=== PATIENT | female | born 1975 | race American Indian/Alaskan Native ===

== ENCOUNTER 2019-11-27 21:06 | Emergency (ER) | payer OTHER ==
--- NOTE | 2019-11-27 22:01 | Event Note ---
ED Screening Note Date of service: 11/27/19 Time: 21:59 ED Screening Note: 44 y o f presents with vomitting/ diarhrea and nose bleed PMH: recent dx of HTN at ER, no follow up , non compliance This initial assessment/diagnostic orders/clinical plan/treatment(s) is/are subject to change based on patients health status, clinical progression and re- assessment by fellow clinical providers in the ED. Further treatment and workup at subsequent clinical providers discretion. Patient/guardian urged not to elope from the ED as their condition may be serious if not clinically assessed and managed. Initial orders include: labs, ua,upt pain control clonidine 0.2 in traige acc eval
[2019-11-27] MEDS ORDERED: cloNIDine 0.2 MG TAB PO ONE (22:04)
[2019-11-27] MEDS ORDERED: cloNIDine 0.2 MG TAB ONE (22:07)
[2019-11-27 23:31] LABS: Basophils % (Auto) 0.9 % (0.0-1.8); Eosinophils # (Auto) 0.1 K/mm3 (0.0-0.4); Eosinophils % (Auto) 1.3 % (0.0-4.3); Hematocrit 39.2 % (30.3-42.9); Hemoglobin 13.2 gm/dl (10.1-14.3); Lymphocytes # (Auto) 2.2 K/mm3 (1.2-5.4); Mean Corpuscular HGB Conc 34 % (30-34); Mean Corpuscular Volume 101 fl (79-97); Monocytes # (Auto) 0.4 K/mm3 (0.0-0.8); Monocytes % (Auto) 6.7 % (0.0-7.3); Platelet Count 247 K/mm3 (140-440); Red Blood Count 3.89 M/mm3 (3.65-5.03); Red Cell Distribution Width 17.2 % (13.2-15.2)
[2019-11-27 23:49] LABS: Alanine Aminotransferase 29 units/L (7-56); Albumin 4.4 g/dL (3.9-5); BUN/Creatinine Ratio 7; Blood Urea Nitrogen 5 mg/dL (7-17); Calcium 9.1 mg/dL (8.4-10.2); Hemolysis Index 5
[2019-11-28] MEDS ORDERED: HYDROcodone/ACETAMINOPHEN 5-325 MG TAB PO ONE (00:47)
[2019-11-28] MEDS ORDERED: PROMETHAZINE 25 MG TAB PO ONE (00:47)
--- NOTE | 2019-11-28 00:54 | Emergency Department Report ---
HPI - General Chief Complaint: Abdominal Pain Time Seen by Provider: 11/28/19 00:38 - HPI HPI: Room 41 The patient is a 44-year-old female presenting with a chief complaint of headache nausea vomiting. Patient states her symptoms began when she awakened 11/25/2019 with nausea and vomiting, epistaxis and a headache. Patient states she had the same symptoms in August and it was attributed to her hypertension. Patient states she never followed up with her primary physician regarding her hypertension she could not get the time away from work. Patient states she is now able to follow up with her primary doctor. The patient gives her headache is 6/10. Patient admits to nausea. Location: [See above] Duration: [See above] Quality: [See above] Severity: [See above] Timing: [See above] Context: [See above] Modifying factors: [See above] Associated signs and symptoms: [see above] ED Past Medical Hx - Past Medical History Previous Medical History?: Yes Hx Hypertension: Yes - Surgical History Past Surgical History?: Yes Additional Surgical History: Right ankle - Family History Family history: no significant - Social History Smoking Status: Current Every Day Smoker (1/2 pack per day) Substance Use Type: None (denies illicit drug use), Alcohol (nightly) - Medications Home Medications: Home Medications Medication Instructions Recorded Confirmed Last Taken Type Butalb/Acetamin/Caff 50-325-40 1 tab PO Q8HR PRN #10 tablet 11/28/19 Unknown Rx [Fioricet 50-325-40] Promethazine [Phenergan] 25 mg PO Q6HR PRN #20 tab 11/28/19 Unknown Rx Promethazine [Phenergan] 25 mg [place] Q6HR PRN #5 supp.rect 11/28/19 Unknown Rx amLODIPine 5 mg PO DAILY #90 tab 11/28/19 Unknown Rx levoFLOXacin [Levaquin TAB] 500 mg PO QDAY #3 tablet 11/28/19 Unknown Rx ED Review of Systems ROS: Stated complaint: VOMITTING FOR 2 DAYS Other details as noted in HPI Constitutional: no symptoms reported Eyes: denies: eye pain ENT: denies: throat pain Respiratory: no symptoms reported Cardiovascular: denies: chest pain Endocrine: no symptoms reported Gastrointestinal: nausea, vomiting Neurological: headache Physical Exam - Physical Exam Vital Signs: Vital Signs 11/27/19 22:08 Pulse Rate 94 H Blood Pressure 193/126 Vital Signs 11/27/19 11/28/19 11/28/19 22:08 00:59 01:13 Temperature 98.6 F Pulse Rate 94 H 68 Respiratory 20 20 Rate Blood Pressure 193/126 Blood Pressure 138/92 [Left] O2 Sat by Pulse 99 Oximetry Physical Exam: GENERAL: The patient is well-developed well-nourished female lying on stretcher not appearing to be in acute distress. [] HEENT: Normocephalic. Atraumatic. Extraocular motions are intact. Patient has moist mucous membranes. NECK: Supple. No meningitic signs are noted. Trachea midline CHEST/LUNGS: Clear to auscultation. There is no respiratory distress noted. HEART/CARDIOVASCULAR: Regular. There is no tachycardia. There is no gallop rub or murmur. ABDOMEN: Abdomen is soft, nontender. Patient has normal bowel sounds. There is no abdominal distention. SKIN: There is no rash. There is no edema. There is no diaphoresis. NEURO: The patient is awake, alert, and oriented. The patient is cooperative. The patient has no focal neurologic deficits. The patient has normal speech. Cranial nerves II through XII grossly intact, no drift MUSCULOSKELETAL: There is no evidence of acute injury. ED Course Vital Signs 11/27/19 22:08 Pulse Rate 94 H Blood Pressure 193/126 ED Medical Decision Making - Lab Data Result diagrams: 11/27/19 22:48 11/27/19 22:48 Laboratory Tests 11/27/19 11/27/19 11/28/19 22:48 22:48 01:00 WBC 5.2 RBC 3.89 Hgb 13.2 Hct 39.2 MCV 101 H MCH 34 H MCHC 34 RDW 17.2 H Plt Count 247 Lymph % (Auto) 41.0 H Rhea % (Auto) 6.7 Eos % (Auto) 1.3 Baso % (Auto) 0.9 Lymph # 2.2 Rhea # 0.4 Eos # 0.1 Baso # 0.0 Seg Neutrophils % 50.1 Seg Neutrophils # 2.6 Sodium 134 L Potassium 4.2 Chloride 97.3 L Carbon Dioxide 22 Anion Gap 19 BUN 5 L Creatinine 0.7 Estimated GFR > 60 BUN/Creatinine Ratio 7 Glucose 103 H Calcium 9.1 Total Bilirubin 0.40 AST 51 H ALT 29 Alkaline Phosphatase 78 Total Protein 7.7 Albumin 4.4 Albumin/Globulin Ratio 1.3 Urine Color Yellow Urine Turbidity Slightly-cloudy Urine pH 6.0 Ur Specific [place] 1.003 Urine Protein <15 mg/dl Urine Glucose (UA) Neg Urine Ketones Neg Urine Blood Lg Urine Nitrite Pos Urine Bilirubin Neg Urine Urobilinogen < 2.0 Ur Leukocyte Esterase Lg Urine WBC (Auto) 33.0 H Urine RBC (Auto) 24.0 U Epithel Cells (Auto) 1.0 Urine Bacteria (Auto) 3+ Urine HCG, Qual Negative - Radiology Data Radiology results: report reviewed (CT head), image reviewed (CT head) [facility] [address] [place] [address] Cat Scan Report Signed Patient: ARNOLDO CHAIDEZ MR#: [id number] : 1975 Acct:[id number] Age/Sex: 44 / F ADM Date: 11/27/19 Loc: ED Attending Dr: Ordering Physician: CONRAD HERNANDES MD Date of Service: 11/28/19 Procedure(s): CT head/brain wo con Accession Number(s): [id number] cc: CONRAD HERNANDES MD CT head/brain wo con INDICATION: hypertension, headache. TECHNIQUE: All CT scans at this location are performed using CT dose reduction for ALARA by means of automated exposure control. COMPARISON: None available. FINDINGS: Visualized paranasal and mastoid sinuses are clear. Ventricles are symmetrical and normal in size. No mass, hemorrhage or other significant abnormality. IMPRESSION: 1. No acute abnormality. Signer Name: Aj Aparicio MD Signed: 11/28/2019 1:34 AM Workstation Name: [id number] Transcribed By: TM Dictated By: Aj Aparicio MD Electronically Authenticated By: Aj Aparicio MD Signed Date/Time: 11/28/19133 DD/ 2 TD/TT: - Differential Diagnosis hypertensive urgency, intracranial mass Critical care attestation.: If time is entered above; I have spent that time in minutes in the direct care of this critically ill patient, excluding procedure time. ED Disposition Clinical Impression: Hypertensive urgency, Headache, UTI (urinary tract infection) Disposition: DC- TO HOME OR SELFCARE Is pt being admited?: No Does the pt Need Aspirin: No Condition: Stable Instructions: Abdominal Pain (ED) Prescriptions: amLODIPine 5 mg PO DAILY #90 tab Butalb/Acetamin/Caff 50-325-40 [Fioricet 50-325-40] 1 tab PO Q8HR PRN #10 tablet PRN Reason: Headache levoFLOXacin [Levaquin TAB] 500 mg PO QDAY #3 tablet Promethazine [Phenergan] 25 mg PO Q6HR PRN #20 tab PRN Reason: Nausea Promethazine [Phenergan] 25 mg [place] Q6HR PRN #5 supp.rect PRN Reason: Vomiting Referrals: PRIMARY CARE, [Primary Care Provider] - 3-5 Days Time of Disposition: 01:42
[2019-11-28 01:12] LABS: Bacteria,Urine 3+ /HPF (Negative); Bilirubin,Urine NEG (Negative); Blood,Urine LG (Negative); Color,Urine Yellow (Yellow); Protein,Urine <15 mg/dL mg/dL (Negative); Urobilinogen,Urine < 2.0 mg/dL (<2.0)
[2019-11-28 01:14] VITALS: BP 138/92
[2019-11-28 01:15] LABS: HCG Qualitative,Urine Negative (Negative)
--- NOTE | 2019-11-28 01:38 | Cat Scan Report ---
CT head/brain wo con INDICATION: hypertension, headache. TECHNIQUE: All CT scans at this location are performed using CT dose reduction for ALARA by means of automated e xposure control. COMPARISON: None available. FINDINGS: Visualized paranasal and mastoid sinuses are clear. Ventricles are symmetrical and normal in size. No mass, hemorrhage or other significant abnormality. IMPRESSION: 1. No acute abnormality. Signer Name: Aj Aparicio MD Signed: 11/28/2019 1:34 AM Workstation Name: [id number]
== END 2019-11-28 02:00 | disposition home or self-care (01) ==
LOC: ED 21:06
DX: N39.0 Urinary tract infection, site not specified (principal); R51 Headache; I16.0 Hypertensive urgency; I10 Essential (primary) hypertension; F17.200 Nicotine dependence, unspecified, uncomplicated; Z79.899 Other long term (current) drug therapy
CPT/HCPCS: 36415; 70450; 80053; 81001; 81025; 85025; 87076; 87086; 87186; 99284; Q0169

== ENCOUNTER 2020-12-16 16:59 | Emergency (ER) | payer OTHER | END 2020-12-16 17:20 | disposition left against medical advice (07) | LOC: ED 16:59 | DX: M54.9 Dorsalgia, unspecified (principal); Z53.21 Procedure and treatment not carried out due to patient leaving prior to being seen by health care provider ==

== ENCOUNTER 2020-12-21 01:09 | Emergency (ER) | payer OTHER ==
--- NOTE | 2020-12-21 02:11 | Emergency Department Report ---
ED Extremity Problem HPI - General Chief complaint: Abdominal Pain Stated complaint: EMESIS/DIARRHEA/WEIGHT LOSS/NUMBNESS Time Seen by Provider: 12/21/20 01:52 Source: patient Mode of arrival: Ambulatory Limitations: No Limitations - History of Present Illness Initial comments: 45-year-old female, history of hypertension, noncompliant with BP meds (chooses to treat her hypertension with natural remedies), presents to ED with multiple complaints. First, patient reports she has had numbness only to the front/anterior aspect of her lower legs and thighs for the last 3 weeks. Secondly, patient reports she has had bilateral knee pain for 1 week, right worse than left. States this pain radiates up into her thighs. Patient denies any trauma. States she has never had this pain before. She denies any pain to the lower legs. Patient states she is unable to tell if she has any swelling to her knees. Patient reports she has been taken [id number] medications for this. Third, patient reports she is having nausea, vomiting, diarrhea and as sociated abdominal pain x4 days. Patient states the pain is located in the lower abdomen and radiates around to her lower back. Patient reports she has been experiencing the same abdominal and back pain for 1 year, off and on. Patient states "I have stomach issues." However, patient states she has not seen a client care representative because she is afraid of doctors. Patient denies any fever, cough, shortness of breath, loss of smell or taste, known exposure to anyone who has tested positive for COVID-19. MD Complaint: extremity pain -: week(s) (1) Location: bilateral lower extremity History of Same: No -: Yes arthralgia, No fever, No associated dyspnea, No associated chest pain Quality: aching Consistency: constant Improves with: nothing Worsens with: nothing Associated Symptoms: denies: chest pain, shortness of breath, fever - Related Data Previous Rx's Medication Instructions Recorded Last Taken Type Butalb/Acetamin/Caff 50-325-40 1 tab PO Q8HR PRN #10 tablet 11/28/19 Unknown Rx [Fioricet 50-325-40] Promethazine [Phenergan] 25 mg PO Q6HR PRN #20 tab 11/28/19 Unknown Rx Promethazine [Phenergan] 25 mg [place] Q6HR PRN #5 supp.rect 11/28/19 Unknown Rx levoFLOXacin [Levaquin TAB] 500 mg PO QDAY #3 tablet 11/28/19 Unknown Rx Acetaminophen/Codeine [Tylenol 1 tab PO Q6H PRN #14 tab 08/03/20 Unknown Rx /Codeine # 3 tab] Naproxen [Naprosyn] 500 mg PO BID #20 tablet 12/21/20 Unknown Rx Ondansetron [Zofran Odt] 4 mg PO Q8HR PRN #20 tab.rapdis 12/21/20 Unknown Rx Sulfamethoxazole/Trimethoprim 1 each PO BID #6 tablet 12/21/20 Unknown Rx [Bactrim DS TAB] amLODIPine 5 mg PO DAILY #30 tab 12/21/20 Unknown Rx traMADoL [Ultram] 50 mg PO Q6HR PRN #7 tablet 12/21/20 Unknown Rx Allergies Allergy/AdvReac Type Severity Reaction Status Date / Time No Known Allergies Allergy Unverified 11/27/19 22:07 ED Review of Systems ROS: Stated complaint: EMESIS/DIARRHEA/WEIGHT LOSS/NUMBNESS Other details as noted in HPI Comment: All other systems reviewed and negative Constitutional: denies: fever Respiratory: denies: cough, shortness of breath Cardiovascular: denies: chest pain Gastrointestinal: abdominal pain, nausea, vomiting, diarrhea Musculoskeletal: as per HPI Neurological: numbness, paresthesias ED Past Medical Hx - Past Medical History Previous Medical History?: Yes Hx Hypertension: Yes Additional medical history: anemia - Surgical History Past Surgical History?: Yes Additional Surgical History: Right ankle - Social History Smoking Status: Current Every Day Smoker Substance Use Type: Alcohol - Medications Home Medications: Home Medications Medication Instructions Recorded Confirmed Last Taken Type Butalb/Acetamin/Caff 50-325-40 1 tab PO Q8HR PRN #10 tablet 11/28/19 Unknown Rx [Fioricet 50-325-40] Promethazine [Phenergan] 25 mg PO Q6HR PRN #20 tab 11/28/19 Unknown Rx Promethazine [Phenergan] 25 mg [place] Q6HR PRN #5 supp.rect 11/28/19 Unknown Rx levoFLOXacin [Levaquin TAB] 500 mg PO QDAY #3 tablet 11/28/19 Unknown Rx Acetaminophen/Codeine [Tylenol 1 tab PO Q6H PRN #14 tab 08/03/20 Unknown Rx /Codeine # 3 tab] Naproxen [Naprosyn] 500 mg PO BID #20 tablet 12/21/20 Unknown Rx Ondansetron [Zofran Odt] 4 mg PO Q8HR PRN #20 tab.rapdis 12/21/20 Unknown Rx Sulfamethoxazole/Trimethoprim 1 each PO BID #6 tablet 12/21/20 Unknown Rx [Bactrim DS TAB] amLODIPine 5 mg PO DAILY #30 tab 12/21/20 Unknown Rx traMADoL [Ultram] 50 mg PO Q6HR PRN #7 tablet 12/21/20 Unknown Rx ED Physical Exam - General Limitations: No Limitations General appearance: alert, in no apparent distress - Head Head exam: Present: atraumatic, normocephalic - Eye Eye exam: Present: normal appearance - ENT ENT exam: Present: mucous membranes moist - Neck Neck exam: Present: normal inspection - Respiratory Respiratory exam: Present: normal lung sounds bilaterally. Absent: respiratory distress - Cardiovascular Cardiovascular Exam: Present: normal rhythm, tachycardia - GI/Abdominal GI/Abdominal exam: Present: soft, tenderness (Mild suprapubic). Absent: distended - Extremities Exam Extremities exam: Present: normal inspection, full ROM, tenderness (Bilateral knees), other (pt ambulates without difficulty). Absent: joint swelling, calf tenderness - Neurological Exam Neurological exam: Present: alert, oriented X3. Absent: motor sensory deficit (Sensation intact in lower extremities, able to feel light touch, equal bilaterally; strength is intact in bilateral legs) - Psychiatric Psychiatric exam: Present: normal affect, normal mood - Skin Skin exam: Present: warm, dry, intact, normal color ED Course Vital Signs 12/21/20 12/21/20 01:20 04:47 Temperature 98.0 F 98 F Pulse Rate 111 H 94 H Respiratory 16 16 Rate Blood Pressure 170/112 Blood Pressure 149/106 [Left] O2 Sat by Pulse 96 100 Oximetry ED Medical Decision Making - Lab Data Result diagrams: 12/21/20 01:28 12/21/20 01:28 - Radiology Data Radiology results: report reviewed, image reviewed - Medical Decision Making Patient presents to ED with multiple complaints. Her main complaint is report of bilateral knee pain. X-rays are unremarkable. Exam shows no. Range of motion is intact. Patient is ambulatory. Strength and sensation are also intact, despite her reporting anterior numbness to bilateral legs. Labs show hypokalemia with potassium of 3.1. This has been replaced. Patient is hypertensive, however she reports noncompliance with her BP meds. Will still discharged with prescription for antihypertensive. Will also give prescription for antibiotics as patient has some bacteriuria. Patient advised to seek outpatient follow-up. Return precautions given. Will discharge at this time. Critical care attestation.: If time is entered above; I have spent that time in minutes in the direct care of this critically ill patient, excluding procedure time. ED Disposition Clinical Impression: Uncontrolled hypertension, Arthralgia of both knees, Chronic abdominal pain, UTI (urinary tract infection), Hypokalemia Disposition: TO HOME OR SELFCARE Is pt being admited?: No Condition: Stable Instructions: Acute Knee Pain, Adult, Potassium Content of Foods, Hypertension, Adult, Abdominal Pain (ED), Hypertension (ED) Prescriptions: amLODIPine 5 mg PO DAILY #30 tab Sulfamethoxazole/Trimethoprim [Bactrim DS TAB] 1 each PO BID #6 tablet Naproxen [Naprosyn] 500 mg PO BID #20 tablet traMADoL [Ultram] 50 mg PO Q6HR PRN #7 tablet PRN Reason: Pain Ondansetron [Zofran Odt] 4 mg PO Q8HR PRN #20 tab.rapdis PRN Reason: Vomiting Referrals: RUPAL RODRIGUEZCLIFTON MD CARIN [Primary Care Provider] - 3-5 Days HANNAH STEELE MD [Staff Physician] - 3-5 Days MIAN PLATA MD [Staff Physician] - 3-5 Days Forms: Work/School Release Form(ED) Time of Disposition: 04:27
[2020-12-21 02:33] LABS: Alanine Aminotransferase 38 units/L (7-56); Albumin 3.8 g/dL (3.9-5); Basophils # (Auto) 0.1 K/mm3 (0.0-0.1); Basophils % (Auto) 0.9 % (0.0-1.8); Blood Urea Nitrogen 2 mg/dL (7-17); Calcium 8.4 mg/dL (8.4-10.2); Eosinophils # (Auto) 0.1 K/mm3 (0.0-0.4); Eosinophils % (Auto) 0.9 % (0.0-4.3); Hemoglobin 11.1 gm/dl (10.1-14.3); Hemolysis Index 3; Lymphocytes # (Auto) 2.9 K/mm3 (1.2-5.4); Lymphocytes % (Auto) 40.3 % (13.4-35.0); Mean Corpuscular HGB Conc 34 % (30-34); Monocytes # (Auto) 0.6 K/mm3 (0.0-0.8); Monocytes % (Auto) 7.7 % (0.0-7.3); Platelet Count 278 K/mm3 (140-440); Red Blood Count 2.88 M/mm3 (3.65-5.03)
[2020-12-21 02:38] LABS: BUN/Creatinine Ratio 4; Mean Corpuscular Volume 114 fl (79-97); Red Cell Distribution Width 24.6 % (13.2-15.2)
[2020-12-21] MEDS ORDERED: POTASSIUM CHLORIDE ER 20 MEQ TAB PO ONE (02:46)
[2020-12-21] MEDS ORDERED: traMADol 50 MG TAB PO ONE (03:02)
[2020-12-21] MEDS ORDERED: ONDANSETRON 4 MG ODT TAB PO ONE (03:02)
--- NOTE | 2020-12-21 03:11 | XRay Report ---
Bilateral knee radiographs 3 views right, 3 views left INDICATION / CLINICAL INFORMATION: Numbness in front of legs and pain COMPARISON: None available. FINDINGS: BONES / JOINT(S): No acute fracture or subluxation. No significant arthritis. SOFT TISSUES: No significant abnormality. ADDITIONAL FINDINGS: None. Signer Name: Gómez Muir MD Signed: 12/21/2020 3:06 AM Workstation Name: [id number]
[2020-12-21 04:09] LABS: Bacteria,Urine 2+ /HPF (Negative); Bilirubin,Urine NEG (Negative); Blood,Urine NEG (Negative); Color,Urine Yellow (Yellow); Protein,Urine <15 mg/dL mg/dL (Negative); Urobilinogen,Urine < 2.0 mg/dL (<2.0)
[2020-12-21 04:48] VITALS: BP 149/106
== END 2020-12-21 05:14 | disposition home or self-care (01) ==
LOC: ED 01:09
DX: I10 Essential (primary) hypertension (principal); M25.562 Pain in left knee; M25.561 Pain in right knee; N39.0 Urinary tract infection, site not specified; E87.6 Hypokalemia; F17.200 Nicotine dependence, unspecified, uncomplicated; Z79.899 Other long term (current) drug therapy
CPT/HCPCS: 36415; 80053; 81001; 84703; 85025; Q0162

== ENCOUNTER 2020-12-31 17:35 | Emergency (ER) | payer OTHER ==
--- NOTE | 2020-12-31 18:20 | Emergency Department Report ---
Blank Doc - Documentation Documentation: 45-year-old female that presents with chest pain, shortness of breath, abdominal pain with nausea vomiting. Patient stated has a possibility of exposure with Covid. Tachycardia in triage. 1- This initial assessment/diagnostic orders/clinical plan/ treatment(s) is/are subject to change based on pt's health status, clinical progression and re- assessment by fellow clinical providers in the ED. Further treatment and workup at subsequent clinical provers discretion. Patient/guardians urged not to elope from ED as their condition may be serious if not clinically assessed and managed. 2-cardiac work-up 3-UA
[2020-12-31 18:46] LABS: Basophils % (Auto) 0.7 % (0.0-1.8); Eosinophils % (Auto) 0.7 % (0.0-4.3); Hematocrit 33.7 % (30.3-42.9); Hemoglobin 11.2 gm/dl (10.1-14.3); Lymphocytes # (Auto) 1.5 K/mm3 (1.2-5.4); Lymphocytes % (Auto) 31.2 % (13.4-35.0); Mean Corpuscular HGB Conc 33 % (30-34); Monocytes # (Auto) 0.6 K/mm3 (0.0-0.8); Monocytes % (Auto) 11.8 % (0.0-7.3); Platelet Count 259 K/mm3 (140-440); Red Blood Count 2.94 M/mm3 (3.65-5.03)
[2020-12-31 18:47] LABS: Mean Corpuscular Volume 115 fl (79-97); Red Cell Distribution Width 23.5 % (13.2-15.2)
[2020-12-31 18:56] LABS: INR 1.06 (0.87-1.13); Partial Thromboplastin Time 27.4 Sec. (24.2-36.6)
[2020-12-31 19:08] LABS: Alanine Aminotransferase 65 units/L (7-56); Albumin 3.9 g/dL (3.9-5); Blood Urea Nitrogen 4 mg/dL (7-17); Calcium 9.2 mg/dL (8.4-10.2); Hemolysis Index 13
[2020-12-31 19:10] LABS: BUN/Creatinine Ratio 8
--- NOTE | 2020-12-31 19:20 | XRay Report ---
CHEST 2 VIEWS INDICATION: Chest Pain. COMPARISON: None. FINDINGS: Support devices: None. Heart: Within normal limits. Lungs/Pleura: No acute air space or interstitial disease. No significant pleural effusion. IMPRESSION: No acute findings. Signer Name: Malik Prajapati MD Signed: 12/31/2020 7:16 PM Workstation Name: [id number]
[2021-01-01] MEDS ORDERED: dexAMETHasone 4 MG/ML VIAL IV ONE (00:15)
[2021-01-01] MEDS ORDERED: SODIUM CHLORIDE 0.9% 1000 ML 1,000 ML IV ONE (00:15)
[2021-01-01] MEDS ORDERED: hydrALAZINE 20 MG/1 ML INJ IV ONE (00:15)
[2021-01-01] MEDS ORDERED: AZITHROMYCIN/NS 500 MG/250 ML 500 MG/250 ML BAG IV ONE (00:15)
[2021-01-01] MEDS ORDERED: ONDANSETRON 4 MG/2 ML INJ IV ONE (00:15)
[2021-01-01] MEDS ORDERED: cefTRIAXone/NS 2 GM/100 ML 2 GM/100 ML BAG IV ONE (00:15)
--- NOTE | 2021-01-01 00:17 | Emergency Department Report ---
ED Chest Pain HPI - General Chief Complaint: Chest Pain Stated Complaint: CHEST PAIN;COUGH;CHILLS/V/D PUI?: Yes Time Seen by Provider: 01/01/21 00:05 Source: patient Mode of arrival: Ambulatory Limitations: No Limitations - History of Present Illness Initial Comments: Patient is a 45-year-old female who presents emergency room with complaints of chest pain, shortness of breath, chills, nausea, vomiting, diarrhea, headache, body aches, cough, decreased appetite, abdominal pain,. Patient states her symptoms started 2 days ago. Patient states that she had a COVID-19 exposure. Patient states she has not had fever. Patient states that her chest pain is better with rest and worse with movement and palpation. Patient states her shortness of breath better with rest and worse with exertion. Patient denies blood in her vomitus and blood in her diarrhea. Patient states she has not been tested for COVID-19. Patient states she was seen here 3 weeks ago for elevated blood pressure. Patient states she was given blood pressure medications. Patient states she has been compliant with his medications but has not seen her primary care since leaving the ER 3 weeks ago. Patient states she did not take her blood pressure medications and she has been vomiting.. Patient denies loss of smell. Patient denies blurry vision. Patient denies neck pain. Patient denies neck stiffness. MD Complaint: chest pain -: Sudden Onset: during rest Pain Location: substernal, left chest, right chest Pain Radiation: none Severity scale (0 -10): 7 Quality: sharp Consistency: constant Improves With: rest Worsens With: palpation, movement re: nausea, vomting, dyspnea. denies: diaphoresis, sense of impending doom Other Symptoms: cough, acid taste in mouth, palpitations, burping. denies: fever, syncope, rash, leg swelling Treatments Prior to Arrival: none Aspirin use within the Past 7 Days: (0) No - Related Data On Oral Contraceptives: No Previous Rx's Medication Instructions Recorded Last Taken Type Butalb/Acetamin/Caff 50-325-40 1 tab PO Q8HR PRN #10 tablet 11/28/19 Unknown Rx [Fioricet 50-325-40] Promethazine [Phenergan] 25 mg PO Q6HR PRN #20 tab 11/28/19 Unknown Rx Promethazine [Phenergan] 25 mg [place] Q6HR PRN #5 supp.rect 11/28/19 Unknown Rx levoFLOXacin [Levaquin TAB] 500 mg PO QDAY #3 tablet 11/28/19 Unknown Rx Acetaminophen/Codeine [Tylenol 1 tab PO Q6H PRN #14 tab 08/03/20 Unknown Rx /Codeine # 3 tab] Naproxen [Naprosyn] 500 mg PO BID #20 tablet 12/21/20 Unknown Rx Sulfamethoxazole/Trimethoprim 1 each PO BID #6 tablet 12/21/20 Unknown Rx [Bactrim DS TAB] amLODIPine 5 mg PO DAILY #30 tab 12/21/20 Unknown Rx traMADoL [Ultram] 50 mg PO Q6HR PRN #7 tablet 12/21/20 Unknown Rx Azithromycin [Zithromax] 500 mg PO DAILY 5 Days #5 tablet 01/01/21 Unknown Rx Ondansetron [Zofran ODT TAB] 4 mg PO Q6HR PRN #20 tab.rapdis 01/01/21 Unknown Rx methylPREDNISolone [Medrol 4MG 4 mg PO DAILY 6 Days #1 tab.ds.pk 01/01/21 Unknown Rx DOSEPAK (21 tabs)] Allergies Allergy/AdvReac Type Severity Reaction Status Date / Time No Known Allergies Allergy Unverified 11/27/19 22:07 Heart Score - HEART Score History: Slightly suspicious EKG: Normal Age: < 45 Risk factors: No known risk factors Troponin: < normal limit HEART Score: 0 ED Review of Systems ROS: Stated complaint: CHEST PAIN;COUGH;CHILLS/V/D Other details as noted in HPI Constitutional: chills, malaise. denies: fever Eyes: denies: eye pain, eye discharge, vision change ENT: denies: ear pain, throat pain Respiratory: cough, shortness of breath. denies: wheezing Cardiovascular: chest pain. denies: palpitations Endocrine: no symptoms reported Gastrointestinal: abdominal pain, nausea, vomiting, diarrhea. denies: constipation, hematemesis, melena, hematochezia Genitourinary: denies: urgency, dysuria, discharge Musculoskeletal: denies: back pain, joint swelling, arthralgia Skin: denies: rash, lesions Neurological: denies: headache, weakness, paresthesias Psychiatric: denies: anxiety, depression Hematological/Lymphatic: denies: easy bleeding, easy bruising ED Past Medical Hx - Past Medical History Previous Medical History?: Yes Hx Hypertension: Yes Additional medical history: anemia - Surgical History Past Surgical History?: Yes Additional Surgical History: Right ankle - Family History Family history: no significant - Social History Smoking Status: Current Every Day Smoker Substance Use Type: None - Medications Home Medications: Home Medications Medication Instructions Recorded Confirmed Last Taken Type Butalb/Acetamin/Caff 50-325-40 1 tab PO Q8HR PRN #10 tablet 11/28/19 Unknown Rx [Fioricet 50-325-40] Promethazine [Phenergan] 25 mg PO Q6HR PRN #20 tab 11/28/19 Unknown Rx Promethazine [Phenergan] 25 mg [place] Q6HR PRN #5 supp.rect 11/28/19 Unknown Rx levoFLOXacin [Levaquin TAB] 500 mg PO QDAY #3 tablet 11/28/19 Unknown Rx Acetaminophen/Codeine [Tylenol 1 tab PO Q6H PRN #14 tab 08/03/20 Unknown Rx /Codeine # 3 tab] Naproxen [Naprosyn] 500 mg PO BID #20 tablet 12/21/20 Unknown Rx Sulfamethoxazole/Trimethoprim 1 each PO BID #6 tablet 12/21/20 Unknown Rx [Bactrim DS TAB] amLODIPine 5 mg PO DAILY #30 tab 12/21/20 Unknown Rx traMADoL [Ultram] 50 mg PO Q6HR PRN #7 tablet 12/21/20 Unknown Rx Azithromycin [Zithromax] 500 mg PO DAILY 5 Days #5 tablet 01/01/21 Unknown Rx Ondansetron [Zofran ODT TAB] 4 mg PO Q6HR PRN #20 tab.rapdis 01/01/21 Unknown Rx methylPREDNISolone [Medrol 4MG 4 mg PO DAILY 6 Days #1 tab.ds.pk 01/01/21 Unknown Rx DOSEPAK (21 tabs)] ED Physical Exam - General Limitations: No Limitations General appearance: alert, in no apparent distress - Head Head exam: Present: atraumatic, normocephalic - Eye Eye exam: Present: normal appearance, PERRL Pupils: Present: normal accommodation - ENT ENT exam: Present: mucous membranes dry - Neck Neck exam: Present: normal inspection - Respiratory Respiratory exam: Present: normal lung sounds bilaterally, chest wall tenderness (Palpitation of the bilateral chest wall reproduces symptoms. Patient has tenderness to palpation of the chest wall.). Absent: respiratory distress, wheezes, rales - Cardiovascular Cardiovascular Exam: Present: regular rate, normal rhythm. Absent: systolic murmur, diastolic murmur, rubs, gallop - GI/Abdominal GI/Abdominal exam: Present: soft, normal bowel sounds. Absent: distended, tenderness, guarding - Extremities Exam Extremities exam: Present: normal inspection - Back Exam Back exam: Present: normal inspection - Neurological Exam Neurological exam: Present: alert, oriented X3 - Psychiatric Psychiatric exam: Present: normal affect, normal mood - Skin Skin exam: Present: warm, dry, intact, normal color. Absent: rash ED Course Vital Signs 12/31/20 01/01/21 01/01/21 18:09 00:04 00:15 Temperature 98.8 F 98.9 F Pulse Rate 97 H 85 Respiratory 18 16 Rate Blood Pressure 192/131 210/129 Blood Pressure 211/117 [Right] O2 Sat by Pulse 100 100 100 Oximetry 01/01/21 01/01/21 01/01/21 00:31 00:45 01:01 Temperature Pulse Rate 80 91 H 74 Respiratory 24 13 17 Rate Blood Pressure 210/129 210/129 210/129 Blood Pressure [Right] O2 Sat by Pulse 100 100 100 Oximetry 01/01/21 01/01/21 01/01/21 01:04 01:15 01:19 Temperature Pulse Rate 79 98 H Respiratory 18 18 Rate Blood Pressure 210/122 210/122 Blood Pressure [Right] O2 Sat by Pulse 100 98 Oximetry 01/01/21 01/01/21 01/01/21 01:31 01:45 02:00 Temperature Pulse Rate 103 H Respiratory 18 Rate Blood Pressure 210/122 210/122 Blood Pressure 134/79 [Right] O2 Sat by Pulse 100 100 100 Oximetry - Reevaluation(s) Reevaluation #1: Patient's blood pressure significantly elevated. Patient will be given hydralazine. 01/01/21 00:18 Reevaluation #2: Patient's blood pressure improved. Patient states she is feeling better. Patient states she does not have a headache. Patient denies blurry vision. Patient denies nausea or vomiting. Patient denies chest pain. I discussed all results and clinical findings with patient. I discussed plan of care with patient. Patient agrees with plan of care. Patient is stable for discharge. Patient will be discharged home. Patient given discharge instructions. Patient voiced understanding of discharge instructions. 01/01/21 01:54 Reevaluation #3: Patient's information faxed over to our local cardiology group for further evaluation treatment and risk stratification. 01/01/21 02:08 ONEL score - Onel Score Age > 65: (0) No Aspirin use within the Past 7 Days: (0) No 3 or more CAD Risk Factors: (0) No 2 or more Angina events in past 24 hrs: (0) No Known CAD with more than 50% Stenosis: (0) No Elevated Cardiac Markers: (0) No ST Deviation Greater than 0.5mm: (0) No ONEL Score: 0 ED Medical Decision Making - Lab Data Result diagrams: 12/31/20 18:34 12/31/20 18:34 - EKG Data -: EKG Interpreted by Me EKG shows normal: sinus rhythm, axis, intervals, QRS complexes, ST-T waves Rate: normal - Radiology Data Radiology results: report reviewed, image reviewed interpreted by me: Chest x-ray: No pneumonia, no pneumothorax, no foreign body, no osseous findings, no acute findings CHEST 2 VIEWS INDICATION: Chest Pain. COMPARISON: None. FINDINGS: Support devices: None. Heart: Within normal limits. Lungs/Pleura: No acute air space or interstitial disease. No significant pleural effusion. IMPRESSION: No acute findings. - Medical Decision Making Patient is a 45-year-old female that presents emergency room with complaints of chest pain, nausea, vomiting, body aches, diarrhea, headache, decreased appetite, abdominal pain, shortness of breath. Patient is finding consistent with COVID-19 and upper respiratory infection. Patient had labs done which were essentially unremarkable save for abnormal LFTs. Patient had a chest x-ray which was negative for acute findings. Patient had an EKG which was negative for acute findings and showed normal ST segments. Patient had 2 sets of cardiac enzymes which were negative. Patient has a low heart score and ONEL score. Patient's stable enough to have her chest pain worked up as an outpatient. Patient's information was faxed over to her local cardiology group for further evaluation treatment and an outpatient resource and risk application. Patient found to have severely elevated blood pressure. Patient noncompliant with her blood pressure medicine due to the nausea and vomiting. Patient given hydra lazine IV blood pressure improved. Patient also given fluids, Zithromax and Decadron and Rocephin. Patient responded well to treatment and patient was headache free, chest pain-free and denied nausea just prior to discharge. Patient states he better after treatment. Patient stable for discharge. Patient discharged home. Patient given discharge directions. - Differential Diagnosis Covid, PUI, URI, chest pain,, vomiting, diarrhea Critical Care Time: Yes Critical care time in (mins) excluding proc time.: 35 Critical care attestation.: If time is entered above; I have spent that time in minutes in the direct care of this critically ill patient, excluding procedure time. Critical Care Time: 35 minutes ED Disposition Clinical Impression: Uncontrolled hypertension, Noncompliance, Person under investigation for COVID- 19, Hypertensive urgency, Cough, Costochondritis, acute URI (upper respiratory infection) Qualifiers: URI type: unspecified viral URI Qualified Code(s): J06.9 - Acute upper respiratory infection, unspecified Nausea & vomiting Qualifiers: Vomiting type: unspecified Vomiting Intractability: non-intractable Qualified Code(s): R11.2 - Nausea with vomiting, unspecified Diarrhea Qualifiers: Diarrhea type: unspecified type Qualified Code(s): R19.7 - Diarrhea, unspecified Chest pain Qualifiers: Chest pain type: unspecified Qualified Code(s): R07.9 - Chest pain, unspecified Disposition: DC-01 TO HOME OR SELFCARE Is pt being admited?: No Does the pt Need Aspirin: No Condition: Stable Instructions: Diarrhea, Adult, COVID-19 Frequently Asked Questions, COVID-19, Cough, Adult, [id number], How to Take Your Blood Pressure, Chest Wall Pain, [id number], Nausea and Vomiting, Adult, [id number], Upper Respiratory Infection, Adult, [id number], COVID-19: How to Protect Yourself and Others - CDC, COVID-19, Managing Your Hypertension, Viral Respiratory Infection, Hypertension, Adult, Chest Pain (ED), Hypertension (ED) Additional Instructions: Patient to follow-up with primary care in 2 to 3 days. Patient to follow-up with health department or outpatient Covid testing in 2 to 3 days. Patient to follow-up with cardiology in 2 to 3 days. Patient to avoid strenuous exercise or heavy lifting until cleared by cardiology. Patient to self quarantine for 10 to 14 days. Patient to rest. Patient to take vitamin C, vitamin D and zinc supplements. Patient to take Tylenol or ibuprofen as needed for pain. Patient to take meds as directed. Patient to return to the ER if condition worsens, changes or new symptoms arise. Patient to monitor blood pressure at home. Patient to restart blood pressure medications. Patient to keep a blood pressure log. Patient take blood pressure log to follow-up appointments. Patient to eat a brat diet. Patient to eat a heart healthy diet. Patient is a low-salt diet. Prescriptions: methylPREDNISolone [Medrol 4MG DOSEPAK (21 tabs)] 4 mg PO DAILY 6 Days #1 tab.ds.pk Azithromycin [Zithromax] 500 mg PO DAILY 5 Days #5 tablet Ondansetron [Zofran ODT TAB] 4 mg PO Q6HR PRN #20 tab.rapdis PRN Reason: Nausea And Vomiting Referrals: PRIMARY CARE, [Primary Care Provider] - 2-3 Days PAMELA PEREZ MD [Staff Physician] - 2-3 Days Time of Disposition: 02:06
[2021-01-01 00:55] LABS: Bacteria,Urine 1+ /HPF (Negative); Bilirubin,Urine NEG (Negative); Blood,Urine LG (Negative); Color,Urine Yellow (Yellow); Mucus,Urine 1+ /HPF; Protein,Urine <15 mg/dL mg/dL (Negative); Urobilinogen,Urine < 2.0 mg/dL (<2.0)
[2021-01-01 02:01] VITALS: BP 134/79
== END 2021-01-01 03:26 | disposition home or self-care (01) ==
LOC: ED 17:35
DX: J06.9 Acute upper respiratory infection, unspecified (principal); M94.0 Chondrocostal junction syndrome [Tietze]; I16.0 Hypertensive urgency; R07.89 Other chest pain; R19.7 Diarrhea, unspecified; R11.2 Nausea with vomiting, unspecified; R05 Cough; F17.200 Nicotine dependence, unspecified, uncomplicated; Z98.890 Other specified postprocedural states; Z79.2 Long term (current) use of antibiotics; Z79.899 Other long term (current) drug therapy
CPT/HCPCS: 36415; 71046; 80053; 81001; 83690; 84484; 84703; 85025; 85610; 85730; 93005; 96365; 96367; 96375; 99284; J0360; J0456; J0696; J1100; J2405; J7030